=== PATIENT | female | born 1985 | race Caucasian/White ===

== ENCOUNTER 2016-09-03 14:48 | Inpatient (IN) | payer BC ==
[~2016-09-03] VITALS: Ht 177.8 cm; Wt 64.2 kg
[2016-09-03] MEDS ORDERED: ONDANSETRON INJ 2 MG/ML 2 ML VIAL IV STA (15:41)
[2016-09-03] MEDS ORDERED: HYDROmorphone INJ 1 MG/ML SYR IV STA ×2 (15:41→17:39)
[2016-09-03] MEDS ORDERED: SODIUM CHLORIDE 0.9% 1000ML 1,000 ML IV STA (15:41)
--- NOTE | 2016-09-03 15:46 | EMERGENCY ROOM VISIT NOTE ---
History Report prepared by Galo: Dina Crawley Under the Supervision of: Dr. Keith Mcallister M.D. First contact with patient: 15:35 Chief Complaint: PAIN (GENERALIZED) Stated Complaint: SHARP STABBING PAIN FROM RUPTION OF CYST History of Present Illness The patient is a 30 year old female who presents to the Emergency Room with complaints of worsening lower abdominal pain since yesterday. The patient notes that she was diagnosed with a ruptured ovarian cyst at [facility] yesterday. She was given pain medications and discharged home. She was scheduled for surgery in several weeks. She called Dr. Cote - Gynecology today due to her worsened pain who referred her to the ED. Her current discomfort is a 7/10 in severity. Source of History: patient Onset: yesterday Position: abdomen (lower) Symptom Intensity: 710 Timing: worsening Review of Systems See HPI for pertinent positives & negatives. A total of 10 systems reviewed and were otherwise negative. Past Medical & Surgical Medical Problems: (1) Endometriosis (2) Ovarian cyst Family History No pertinent family history stated. Social History Smoking Status: Never Smoker Current/Historical Medications Scheduled Control Pills ( Control Pills), 1 TAB PO DAILY Metaxalone (Skelaxin), 800 MG PO QID Ondasetron Odt (Zofran Odt), 4 MG PO Q6H Scheduled PRN Gabapentin (Neurontin), 300 MG PO HS PRN for Pain Naproxen (Aleve), 220 MG PO UD PRN for Pain Oxycodone/Acetaminophen 10MG/325MG (Oxycodone/Acetaminophen 10MG/325MG), 1 TAB PO Q6H PRN for Pain Oxycodone/Acetaminophen 5MG/325MG (Percocet 5MG/325MG), 1 TABLET PO Q6H PRN for Pain Allergies Coded Allergies: No Known Allergies (Unverified , 09/03/16) Physical Exam Vital Signs Date Time Temp Pulse Resp B/P Pulse Ox O2 Delivery O2 Flow Rate FiO2 09/03/16 21:30 84 16 122/55 99 Mask 10 09/03/16 21:20 87 16 118/53 99 Mask 10 09/03/16 21:14 36.6 82 16 123/65 99 Mask 10 09/03/16 18:38 106 21 116/61 95 09/03/16 18:32 106 21 116/61 95 Room Air 09/03/16 17:58 38.1 103 20 122/59 97 Room Air 09/03/16 16:30 105 09/03/16 15:18 37.0 114 20 106/55 98 Room Air Physical Exam GENERAL: Patient is a healthy-appearing well-nourished 30 year old female HEAD: Normocephalic atraumatic EYES: Ocular movements intact pupils equal and react to light OROPHARYNX mucous membranes are moist no exudates present no erythema or edema present NECK: Supple no nuchal rigidity CHEST: Good equal expansion LUNGS: Clear and equal to auscultation CARDIAC: Normal S1 and S2 ABDOMEN: Soft, no guarding. Distended. BACK: No CVA tenderness EXTREMITIES: No pain upon palpation normal muscle strength in all groups no clubbing cyanosis or edema NEURO: Patient is following commands is answering questions appropriately. Alert and oriented x3 Cranial Nerves 2-12 grossly intact Medical Decision & Procedures Laboratory Results Test 09/03/16 16:00 09/03/16 17:05 Total Bilirubin 0.8 mg/dl (0.2-1) Direct Bilirubin 0.2 mg/dl (0-0.2) Aspartate Amino Transf (AST/SGOT) 18 U/L (15-37) Alanine Aminotransferase (ALT/SGPT) 17 U/L (12-78) Alkaline Phosphatase 41 U/L (45-117) Total Protein 7.4 gm/dl (6.4-8.2) Albumin 3.9 gm/dl (3.4-5.0) Lipase 121 U/L (73-393) Human Chorionic Gonadotropin, Qual NEG (NEG) Human Chorionic Gonadotropin, Quant < 1 mIU/mL Medications Administered Medications (Trade) Dose Ordered Sig/Paul Route Start Time Stop Time Status Last Admin Dose Admin Sodium Chloride (Nss 1000ml) 1,000 ml @ 999 mls/hr Q1H1M STAT IV 09/03/16 15:41 09/03/16 16:41 DC 09/03/16 16:15 999 MLS/HR Hydromorphone HCl (Dilaudid Inj) 1 mg NOW STAT IV 09/03/16 15:41 09/03/16 15:44 DC 09/03/16 16:15 1 MG Ondansetron HCl 4 mg 4 mg NOW STAT IV 09/03/16 15:41 09/03/16 15:44 DC 09/03/16 16:15 4 MG Cefazolin Sodium (Ancef 2000mg/60 ml D5W) 60 ml @ 100 mls/hr PREOP@1800 IV 09/03/16 18:00 09/03/16 23:59 DC 09/03/16 18:00 100 MLS/HR Hydromorphone HCl (Dilaudid Inj) 1 mg NOW STAT IV 09/03/16 17:39 09/03/16 17:41 DC 09/03/16 17:59 1 MG Metoclopramide HCl (Reglan Inj) 10 mg NOW STAT IV 09/03/16 17:39 09/03/16 17:41 DC 09/03/16 17:59 10 MG Hydromorphone HCl (Dilaudid Inj) 0.5 mg Q5M PRN IV 09/03/16 19:00 09/04/16 00:00 DC 09/03/16 21:40 0.5 MG Ondansetron HCl (Zofran Inj) 4 mg ONE PRN IV 09/03/16 19:00 09/03/16 21:53 DC 09/03/16 21:45 4 MG Ondansetron HCl (Zofran Inj) 4 mg Q4H PRN IV 09/03/16 21:30 10/03/16 21:29 09/04/16 17:29 4 MG Hydromorphone HCl (Dilaudid [employer]ver [employer]) 25 mg PRN PRN IV 09/03/16 21:30 09/04/16 10:03 DC 09/04/16 05:38 25 MG ED Course 1539: The patient was evaluated in room C9. A complete history and physical examination was performed. 1541: Ordered Zofran Inj 4 mg IV, Dilaudid Inj 1 mg IV, NSS 1000 ml @ 999 mls/ hr IV. 1605: I spoke with Dr. Cote - doll wig maker. She is taking the patient to the OR. Medical Decision Differential diagnosis: Etiologies such as appendicitis, diverticulitis, PUD, biliary pathology, UTI, pancreatitis, obstruction, mesenteric ischemia, aortic pathology, infections, inflammatory bowel disease, renal colic, as well as others were entertained. This is a 30-year-old female who presents emergency department with possibly free fluid in the abdomen. The patient was seen and [facility] yesterday and had an ultrasound performed then. She is to see Dr. Cote in the emergency department today. The patient is refusing to see this emergency department Dr. she is complaining of severe pain therefore she was given an IV dose of Dilaudid 2. The patient refused a fast examination in the emergency department. The case was discussed with Dr. Cote who came and saw the patient and took her to the operating room.- Consults Time Called: 1600 Consulting Physician: Dr. Cote - doll wig maker Returned Call: 1605 I spoke with her. She is taking the patient to the OR. Impression Primary Impression: Lower abdominal pain Critical Care I have personally spent greater than 30 minutes of critical care time in the direct management of this patient. This includes bedside care, interpretation of diagnostic studies, and testing, discussion with consultants, patient, and family members, and other required patient management activities. This 30 minutes is in excess of all separately billable procedures. Scribe Attestation The scribe's documentation has been prepared under my direction and personally reviewed by me in its entirety. I confirm that the note above accurately reflects all work, treatment, procedures, and medical decision making performed by me. Departure Information Dispostion Being Evaluated By Surgeon Prescriptions Oxycodone/Acetaminophen 10MG/325MG (OXYCODONE/ACETAMINOPHEN 10MG/325MG) 1 Tab Tab 1 TAB PO Q6H Y for Pain, #30 TAB Prov: Ion Chávez M.D. 09/05/16 Ondasetron Odt (ZOFRAN ODT) 4 Mg Tab 4 MG PO Q6H for Nausea, #30 TAB Prov: Ion Chávez M.D. 09/05/16 Oxycodone/Acetaminophen 5MG/325MG (PERCOCET 5MG/325MG) Tab 1 TABLET PO Q6H Y for Pain, #30 TAB Prov: Olesya Cote MD 09/04/16 Referrals Red Byers M.D.([facility]) (PCP) Patient Instructions My [facility]
[2016-09-03] MEDS ORDERED: NAPR1TAB9 PO ×2 (16:09→16:12)
[2016-09-03] MEDS ORDERED: GABA-113 PO ×2 (16:09→16:12)
[2016-09-03] MEDS ORDERED: BCPILLS PO ×2 (16:09→16:12)
[2016-09-03] MEDS ORDERED: OXYC-57 PO ×2 (16:09→16:12)
[2016-09-03] MEDS ORDERED: META1TAB22 PO ×2 (16:09→16:12)
[2016-09-03 16:22] LABS: BASO % 0.1 %; BASO ABS # 0.02 K/uL (0-0.2); COMPLETE YES; HEMATOCRIT 43.8 % (37-47); IG% 0.3 %; LYMPH % 10.3 %; LYMPH ABS # 1.62 K/uL (1.2-3.4); MEAN CELL VOLUME 95.2 fL (80-100); MEAN CORPUSCULAR HEMOGLOBIN 32.4 pg (25-34); MEAN PLATELET VOLUME 8.7 fL (7.4-10.4); MONO % 3.3 %; PLATELET COUNT 317 K/uL (130-400)
[2016-09-03 16:32] LABS: PREG INTERNAL NEGATIVE QC NEG CLEAR BACKGROUND; PREG INTERNAL POSITIVE QC POS CONTROL LINE
[2016-09-03 16:40] LABS: BUN/CREATININE RATIO 18.4 (10-20); CALCIUM 8.8 mg/dl (8.5-10.1); CREATININE 0.78 mg/dl (0.60-1.20); POTASSIUM 3.7 mmol/L (3.5-5.1)
--- NOTE | 2016-09-03 16:47 | Medical Consult ---
Consultation Date of Consultation: Sep 03, 2016. Attending Physician: Kera Reason for Consultation: Acute abdominal pain with bilateral ovarian masses, free abdominal fluid, and leukocytosis History of Present Illness 30yo G0 first seen by me in office setting Aug 07 2016 as a new patient for infertility, bilateral pelvic pain and worsening dysmenorrhea. She had recently been found to have bilateral cystic masses of the ovaries, up to 12.8cm, incidentally noted during MRI done for lower back pain which is secondary to work-related injury per the patient. We performed pelvic US in office to confirm that the masses persisted, which they did, and they have the appearance on ultrasound of endometriomas. She was then scheduled for robotic laparoscopic ovarian cystectomies and resection of likely endometriosis. The date of surgery is in September. However, last night she experienced acute worsening of pain and called the on-call physician, Dr. Jaquez, who recommended ER. The patient elected to present to [facility] where she was evaluated and then discharged. She then contacted our office today, tearful and reporting pain was once again worsening, and asked to be seen. I was able to obtain records from [facility] and review them. Upon finding that she had a WBC of 20 when seen last night, as well as persistent ovarian masses and significant free fluid which was found in the pelvis, RUQ and LUQ, I became very concerned and asked her to present to [facility] ER for further evaluation. My concern was primarily for active bleeding or leakage from a rupture in one of her ovarian masses. Torsion is also a significant concern, although their ultrasound does report flow to both ovaries; this does not R/O intermittent torsion. Past Medical/Surgical History Medical Problems: (1) Lower abdominal pain Status: Acute Social History Smoking Status: Never Smoker Smokeless Tobacco Use: No Alcohol Use: socially Drug Use: none Marital Status: Occupation Status: employed Allergies Coded Allergies: No Known Allergies (Unverified , 09/03/16) Home Medications Patient reports use of 1-2 percocet per day, typically after work, for her chronic back pain. She last took one percocet at 4am upon leaving [facility] and did not take any today. She uses LoEstrin as prescribed at our recent visit , though notes she did not take an active pill yesterday as she reached the end of the pack and did not start the next pack yet. Current Inpatient Medications Current Inpatient Medications Medications (Trade) Dose Ordered Sig/Paul Route Start Time Stop Time Status Last Admin Dose Admin Sodium Chloride (Nss 1000ml) 1,000 ml @ 999 mls/hr Q1H1M STAT IV 09/03/16 15:41 09/03/16 16:41 09/03/16 16:15 999 MLS/HR Review of Systems Neg except as above. Constitutional: No fever Cardiovascular: No chest pain Abdomen: No nausea, No vomiting Genitourinary - Female: + vaginal bleeding (started menses yesterday) Physical Exam Date Time Temp Pulse Resp B/P Pulse Ox O2 Delivery O2 Flow Rate FiO2 09/03/16 16:30 105 09/03/16 15:18 37.0 114 20 106/55 98 Room Air General Appearance: + severe distress Head: normocephalic, atraumatic Eyes: EOMI ENT: hearing grossly normal Neck: supple Respiratory/Chest: no respiratory distress, no accessory muscle use Cardiovascular: no edema Abdomen/GI: + tenderness, + guarding, + rebound Genitourinary - Female: + pertinent finding (no pelvic exam as patient barely able to tolerate abdominal exam - tearful with movement or touching.) Extremities/Musculoskelatal: normal inspection Neurologic/Psych: oriented x 3 Laboratory Results Last 24 Hours Test 09/03/16 16:00 White Blood Count 15.80 K/uL Red Blood Count 4.60 M/uL Hemoglobin 14.9 g/dL Hematocrit 43.8 % Mean Corpuscular Volume 95.2 fL Mean Corpuscular Hemoglobin 32.4 pg Mean Corpuscular Hemoglobin Concent 34.0 g/dl Platelet Count 317 K/uL Mean Platelet Volume 8.7 fL Neutrophils (%) (Auto) 86.0 % Lymphocytes (%) (Auto) 10.3 % Monocytes (%) (Auto) 3.3 % Eosinophils (%) (Auto) 0.0 % Basophils (%) (Auto) 0.1 % Neutrophils # (Auto) 13.60 K/uL Lymphocytes # (Auto) 1.62 K/uL Monocytes # (Auto) 0.52 K/uL Eosinophils # (Auto) 0.00 K/uL Basophils # (Auto) 0.02 K/uL RDW Standard Deviation 48.5 fL RDW Coefficient of Variation 13.8 % Immature Granulocyte % (Auto) 0.3 % Immature Granulocyte # (Auto) 0.04 K/uL Assessment & Plan 30yo with large bilateral ovarian cystic masses, likely c/w endometriomas, and acute presentation in past 24 hours with abdominal pain, rebound, guarding, leukocytosis to 20 at hospital yesterday night, and ultrasound of abdomen with significant free fluid seen yesterday. Pending repeat labs here in our ER. Her exam is concerning for peritonitis / cyst rupture / torsion, and I have recommended to the patient that we proceed with an exploratory laparotomy, bilateral ovarian cystectomy, and washout of the abdominal fluid. She is aware that we may choose either a pfannensteil or a midline vertical laparotomy and although she is very concerned about the cosmetic implications of a vertical she stated "I want you to do what you need to do to make this better." We discussed that although there may be risks to her fertility if one or both ovaries or tubes must be removed, but she is also aware that she had infertility for many years before her passed, and in fact there may already have been significant damage to her fallopian tubes from ongoing endometriosis. The patient and family members have asked appropriate questions , risks/benefits/alternatives were discussed at length, and they are in agreement with proceeding.
[2016-09-03] MEDS ORDERED: METOCLOPRAMIDE HCL INJ 5 MG/ML 2 ML VIAL IV STA (17:39)
[2016-09-03] MEDS ORDERED: CEFAZOLIN 2000 MG/60 ML D5W IV SCH (18:00)
[2016-09-03] MEDS ORDERED: FENTANYL CITRATE INJ 50 MCG/1 ML 2 ML VIAL ONE (18:34)
[2016-09-03] MEDS ORDERED: MIDAZOLAM HCL 1 MG/ML 2ML VIAL ONE (18:34)
[2016-09-03] MEDS ORDERED: ROCURONIUM BROMIDE 10 MG/ML 5 ML VIAL ONE (18:36)
[2016-09-03] MEDS ORDERED: PROPOFOL IV EMULSION 10 MG/ML 20 ML VIAL IV ONE (18:36)
[2016-09-03] MEDS ORDERED: LIDOCAINE HCL 2% 2 ML VIAL (20MG/ML) ONE (18:36)
[2016-09-03] MEDS ORDERED: SUCCINYLCHOLINE CHLORIDE 20 MG/ML 10 ML VIAL IV ONE (18:36)
[2016-09-03] MEDS ORDERED: NALOXONE HCL 0.4 MG/1 ML VIAL/CARP IV PRN ×2 (19:00→21:30)
[2016-09-03] MEDS ORDERED: MoRPHine SULFATE 10 MG/ML CARP/VIAL IV PRN (19:00)
[2016-09-03] MEDS ORDERED: ATROPINE SULFATE 0.1 MG/ML 5ML SYR IV PRN (19:00)
[2016-09-03] MEDS ORDERED: EpHEDrine SULFATE INJ 50 MG/ML AMP IV PRN (19:00)
[2016-09-03] MEDS ORDERED: ONDANSETRON INJ 2 MG/ML 2 ML VIAL IV PRN ×2 (19:00→21:30)
[2016-09-03] MEDS ORDERED: LABETALOL HCL IV 5 MG/ML 20ML IV PRN (19:00)
[2016-09-03] MEDS ORDERED: MEPERIDINE HCL 25 MG/ML CARP IV PRN (19:00)
[2016-09-03] MEDS ORDERED: FLUMAZENIL 0.1 MG/1 ML 10 ML VIAL IV PRN (19:00)
[2016-09-03] MEDS ORDERED: PHENYLEPHRINE 100MCG/ML 5ML SYR IV PRN (19:00)
[2016-09-03] MEDS ORDERED: ONDANSETRON INJ 2 MG/ML 2 ML VIAL ONE (19:18)
[2016-09-03] MEDS ORDERED: DEXAMETHASONE SOD INJ 4 MG/ML VIAL ONE (19:18)
[2016-09-03] MEDS ORDERED: GLYCOPYRROLATE INJ 0.2 MG/ML VIAL ONE ×2 (19:19→19:32)
[2016-09-03] MEDS ORDERED: DROPERIDOL 2.5 MG/ML 2**ORM CHARTING ONLY ONE (20:22)
[2016-09-03] MEDS ORDERED: SODIUM CHLORIDE 0.9% 10ML **ORM CHARTING ONLY ONE (20:22)
[2016-09-03] MEDS ORDERED: LABETALOL HCL IV **ORM CHARTING ONLY IV ONE (20:22)
[2016-09-03] MEDS ORDERED: HYDROmorphone HCL 2 MG/ML **ORM CHARTING ONLY ONE (20:22)
[2016-09-03] MEDS ORDERED: METOCLOPRAMIDE HCL INJ **ORM CHARTING ONLY ONE (20:22)
[2016-09-03] MEDS ORDERED: FENTANYL CITRATE INJ 50 MCG**ORM CHARTING ONLY ONE (20:22)
[2016-09-03] MEDS ORDERED: NALOXONE HCL 0.4 MG/1 ML **ORM CHARTING ONLY ONE (20:22)
[2016-09-03] MEDS ORDERED: HydrALAZINE HCL **ORM CHARTING ONLY ONE (20:22)
[2016-09-03] MEDS ORDERED: EpHEDrine SULFATE INJ 50 MG/ML **ORM CHARTING ONLY ONE (20:22)
[2016-09-03] MEDS ORDERED: ATROPINE SULFATE 0.1 MG/ML 5ML SYR IV ONE (20:22)
[2016-09-03] MEDS ORDERED: LIDOCAINE 2% 20 MG/ML SYRINGE***ORM CHARTING ONLY IV ONE (20:22)
[2016-09-03] MEDS ORDERED: MoRPHine SULFATE 10 MG/ML **ORM CHARTING ONLY ONE (20:22)
[2016-09-03] MEDS ORDERED: MIDAZOLAM HCL 1 MG/ML 2ML**ORM CHARTING ONLY ONE (20:22)
[2016-09-03] MEDS ORDERED: MEPERIDINE HCL 50 MG/ML CARP**ORM CHARTING ONLY ONE (20:22)
[2016-09-03] MEDS ORDERED: KETOROLAC 30 MG/ML **ORM CHARTING ONLY ONE (20:22)
[2016-09-03] MEDS ORDERED: ONDANSETRON INJ 2 MG/ML **ORM CHARTING ONLY ONE (20:22)
[2016-09-03] MEDS ORDERED: HYDROmorphone INJ 2 MG/ML SYR/VIAL ONE (20:30)
[2016-09-03] MEDS ORDERED: NEOSTIGMINE METHYLSULFATE 5 MG/5 ML SYR ONE (20:41)
[2016-09-03] MEDS ORDERED: SODIUM CHLORIDE 0.9% 1000ML 1,000 ML IV SCH (21:24)
[2016-09-03] MEDS ORDERED: PROMETHAZINE HCL INJ 25 MG in SODIUM CHLORIDE 0.9% 50ML 50 ML IV PRN (21:30)
[2016-09-03] MEDS: HYDROmorphone INJ 1 MG/ML SYR IV PRN ×2 (21:35→21:40)
--- NOTE | 2016-09-03 21:38 | [facility] Post Operative Brief Note ---
Immediate Operative Summary Operative Date Sep 03, 2016. Pre-Operative Diagnosis Bilateral Ovarian Cystic Masses, acute abdominal pain, free abdominal fluid, leukocytosis Post-Operative Diagnosis Severe Endometrosis with bilateral actively-leaking endometriomas (12cm and 7cm), bilateral hydrosalpinges, Intra-abdominal adhesive disease, uterine fibroid. Procedure(s) Performed Exploratory Laparotomy, Bilateral Salpingectomy, Drainage of Endometriomas, Lysis of Adhesions, Evacuation of Peritoneal Fluid. Surgeon Junior Data Analyst Surgeon(s) Dr. Sandra Trent Estimated Blood Loss 100ml Findings Abdominal cavity distended by 1.5 liters of chocolate-type free fluid. Ovaries 12cm on R and 7cm on L, adhered densely to large and small bowel, rectum, each other in the midline, pelvic sidewalls, and uterus, which was actually encased in / obscured by ovaries. Necrotic endometriosis-type tissue adherent to pelvic and abdominal organs in pieces up to 2" in size. Bilateral distended and distorted fallopian tubes. Uterus with 1" fibroid on anterior surface. Appendix nonvisualized. Specimens A. Right Fallopian Tube B. Left Fallopian Tube C. Probable Endometrial Tissue Complication(s) None Disposition Surgical ICU
[2016-09-03] MEDS ORDERED: HYDROmorphone HCL 0.5MG/ML 50 ML CASSETTE ONE (21:41)
[2016-09-03] MEDS ORDERED: PROMETHAZINE HCL INJ 12.5 MG in SODIUM CHLORIDE 0.9% 50ML 50 ML IV STA (21:50)
--- NOTE | 2016-09-03 21:50 | Anesthesiology Progress Note ---
Anesthesia Post Op Note Date & Time Sep 03, 2016 at 21:51 Vital Signs Pain Intensity: 3.0 Vital Signs Past 12 Hours Date Time Temp Pulse Resp B/P Pulse Ox O2 Delivery O2 Flow Rate FiO2 09/03/16 21:30 84 16 122/55 99 Mask 10 09/03/16 21:20 87 16 118/53 99 Mask 10 09/03/16 21:14 36.6 82 16 123/65 99 Mask 10 09/03/16 18:38 106 21 116/61 95 09/03/16 18:32 106 21 116/61 95 Room Air 09/03/16 17:58 38.1 103 20 122/59 97 Room Air 09/03/16 16:30 105 09/03/16 15:18 37.0 114 20 106/55 98 Room Air Notes Mental Status: alert / awake / arousable, participated in evaluation Pt Amnestic to Procedure: Yes Nausea / Vomiting: adequately controlled, improving with treatment Pain: adequately controlled Airway Patency, RR, SpO2: stable & adequate BP & HR: stable & adequate Hydration State: stable & adequate Anesthetic Complications: no major complications apparent
[2016-09-03 22:35] VITALS: BP 100/64; PULSE 84; TEMP 37.3; O2SAT 97; Ht 177.8 cm; Wt 64.2 kg
[2016-09-03 23:05] VITALS: BP 110/61; PULSE 72; TEMP 37; O2SAT 98
[2016-09-03 23:35] VITALS: BP 101/68; PULSE 79; TEMP 37.2; O2SAT 99
[2016-09-04] VITALS (7 sets, daily range): BP systolic 98–111; BP diastolic 53–68; PULSE 78–98; TEMP 36.8–37.3; O2SAT 95–100
[2016-09-04] MEDS: HYDROmorphone HCL 0.5MG/ML 50 ML CASSETTE IV PRN ×2 (00:25→05:38)
--- NOTE | 2016-09-04 03:20 | OPERATIVE REPORT ---
DATE OF OPERATION: 09/03/2016 PREOPERATIVE DIAGNOSES: Bilateral ovarian cystic masses, acute abdominal pain, free abdominal fluid and leukocytosis. POSTOPERATIVE DIAGNOSES: Severe endometriosis with bilateral actively leaking endometriomas, bilateral hydrosalpinges, intra-abdominal adhesive disease and an uterine fibroid. PROCEDURES: Exploratory laparotomy, bilateral salpingectomy, drainage of endometriomas, lysis of adhesions and evacuation of peritoneal fluid. SURGEON: Dr. Cote. INDUSTRIAL ENGINEERING ANALYST: Miley. ESTIMATED BLOOD LOSS: 100 mL. FINDINGS: Abdominal cavity distended by 1.5 liters of chocolate-type free fluid, ovaries dilated to 12 cm on the right and 7 cm on the left, filled with chocolate type fluid. Each ovary was adhered densely to the large and small bowel, the rectum to each other in the midline, to the pelvic sidewalls and to the uterus, which was actually encased in and obscured by the ovaries. Necrotic endometriosis-type tissue was adherent to the pelvic and abdominal organs in chunks up to 2 inches in size. There were bilateral distended and distorted fallopian tubes, uterus with 1-inch exophytic fibroid on its anterior surface, the appendix was non-visualized. SPECIMENS: Right fallopian tube, left fallopian tube and probable endometrial tissue. COMPLICATIONS: None. DISPOSITION: Stable to the surgical ICU because of the late hour of the completion of her surgery. DESCRIPTION: Treva Dinh is a 30-year-old, with bilateral pelvic cystic masses, who presented to the Emergency Department with acute abdominal pain. She was known to have free fluid in the abdomen and a significant leukocytosis, per the records from her visit to an outside ER the prior evening. She was also known to my care for these ovarian cystic masses, for which surgery was planned in the near future. Given the patient's acute presentation, her leukocytosis, the free fluid and her excruciating pain, the decision was made to bring the patient to the operating room without delay for an exploratory laparotomy. She was brought to the operating room, placed on the table in the supine position. General anesthesia was established. A Toro catheter was placed and she was prepped and draped in standard sterile fashion, after which a hard time-out was taken. A Pfannenstiel incision was created. This was carried down sharply through the subcutaneous tissue to the fascia, which was incised. This was extended laterally, using a Ruby clamp to elevate and Bovie electrocautery to dissect. The edges of the fascia were grasped with Kavitha clamps, elevated and the fascia was sharply and bluntly dissected off the underlying rectus muscles. Midline of the rectus was identified and this was bluntly . As soon as the peritoneum was visualized, it was evident that a significant amount of a grayish brown fluid was lying directly beneath the peritoneum. The peritoneum was then grasped, using 2 hemostats, and elevated and it was opened sharply, using Metzenbaum scissors between hemostats. Immediately, a cola-like fluid was seen to spill from the abdomen. A pool sucker was used in the peritoneal opening to evacuate some of this fluid. Please note that a sliceX suction machine was used to measure the volume of fluid that was retrieved from the abdomen. Once the initial spillage of fluid had been stemmed, the peritoneal opening was extended sharply, using careful dissection with the Metzenbaum scissors until it was clear that this was in fact the peritoneum and that we were entering the peritoneal cavity and not going directly into a cyst or other location. Again, a pool sucker was used to allow visualization of the organs, which were essentially covered in chocolate type fluid. As the fluid was evacuated, we were able to visualize small bowel, which was coated in a densely adherent film of a mcdonough-black substance, which appeared to be necrotic endometriotic implants. Gently using the pool sucker to sweep and the surgeon's hands to palpate the organs, we were able to identify, what appeared to be, a grossly distended right ovary. After sweeping away some small bowel, an area of the ovary was able to be exposed. This was able to be isolated by packing away the surrounding tissues with a damp lap sponges. The ovary was incised, using an 11 blade to make a punctate opening in the ovary through which dark chocolate fluid was expressed and this was suctioned directly from the ovary. As the ovary was decompressed, we were able to begin to gently sweep and dissect around the ovary. We were then gradually able to identify the right fallopian tube, which was immediately noted to be grossly dilated, edematous and consistent with a hydrosalpinx and also encased in a gelatinous dark mcdonough-black material, which again was felt to be consistent with necrotic endometriosis. Continued dissection throughout the pelvis, which was carried out gently, using a combination of sharp and blunt dissection as well as suction, we then eventually identified the left ovary, which was also grossly dilated to approximately 7 cm and the left fallopian tube, which was again completely encased in gelatinous endometriosis. The left ovary was incised in a punctate manner with an 11 blade and again suctioned to directly remove a significant amount of chocolate cyst-type fluid and as this ovary decompressed, we were able to begin dissection of the left ovary. It became apparent that both ovaries were adherent to each other in the midline. Please note that as yet, we had been unable to identify the patient's uterus due to it being completely encased in the ovaries and the overlying bowel. We were then able to recognize that both ovaries were densely adherent to the posterior pelvis and to the rectum as well as to the pelvic sidewalls bilaterally. A portion of the sigmoid colon was adherent across the midline of the pelvic organs over both ovaries and this was gently able to be teased free and moved out of the way. Once this degree of mobilization of the pelvic organs had been undertaken, we were able to gently remove all instruments, complete some additional suction of endometriotic-type free fluid and gently place an O'Adriel-O'Casanova retractor with the patient in moderate Trendelenburg positioning and pack away the bowel that had been successfully freed from the pelvic organs. This significantly aided in our ability to identify the pelvic organs and we were able to more clearly identify both ovaries, both fallopian tubes and eventually, the uterine fundus. Once the fundus was able to be visualized, the cornua of the uterus were gently grasped with Ruby clamps to allow elevation. At this time, we were able to dissect a significant pocket of endometriosis occurring on the anterior surface of the uterus between the uterus and the bladder. Once this was drained and swept away and some additional gelatinous pieces of endometriosis were removed in a blunt manner, we were able to identify a fibroid, which was protuberant from the anterior surface of the uterus, roughly 1 inch in length and rather tai-like in shape. Below this fibroid, the bladder flap was able to be seen and appeared to be relatively anatomically normal. Attention was then turned to restoring normal anatomy near the ovaries by sweeping, again, endometriotic adhesions between the ovaries and the posterior surface of the uterus. At this time, we were able to evacuate additional pelvic free fluid and see that the ovaries were so densely adherent to the rectum that it would be nearly impossible to fully dissect them to allow for oophorectomy without dissecting these carefully off of the rectum. At this time, I asked Dr. Espino, a general surgeon, to come and consult for us. He did promptly arrive in the operating room, scrubbed in; after exploring the pelvis, rendered the opinion that removal of the ovaries was, at this time, surgically inadvisable, as it would almost certainly lead to a rather large rectal injury or even if we were able to remove the ovaries without injuring the rectum, would require leaving a significant portion of ovarian tissue behind, which was less than ideal. Therefore, although the ovaries were grossly distorted, they did look viable and at this time, it was felt that the best course of care for the patient would be to leave the ovaries in situ. We did elect to remove both fallopian tubes, as these were grossly damaged, had demonstrated themselves to be infertile through several years of attempts to conceive and additionally, the patient would likely need IVF in order to conceive in the future, at which time removal of the fallopian tubes would significantly improved her chances for a good outcome. A Ruby clamp was placed across the entire fallopian tube from the fimbriated end to the proximal portion. The tube was excised, using Bovie electrocautery and a pop off 0 Vicryl suture was used in a Bhupendra stitch manner to ligate the mesosalpinx and stump. This was performed on the right fallopian tube and then again on the left fallopian tube. Each fallopian tube was sent for pathology. A further copious irrigation of the abdomen was carried out with warm saline. The patient was placed in a flat position and a pool sucker was again used to retrieve the remainder of the endometriotic-type free fluid from the abdomen. At this time, although a significant amount of endometriosis remained in the abdomen, implanted upon the bowels, the pelvic side bhatt, etc., it was felt that the safest course of action for the patient and the most likely to provide her the greatest amount of relief and positive outcomes would be to consider her surgery complete at this point. A reasoning at this time was that although significant endometriotic disease remained, removal of the ovaries in order to allow permanent shutdown of endometriosis was not surgically feasible at this time and additionally, the ovaries did appear surprisingly viable even after drainage of the cyst and may yet to be able to function normally for this young female patient. Our plan at the present time, as discussed in the operating room, would be to recommend Lupron for 6 months immediately following the surgery in order to assist the remaining endometriotic implants in fading away. Further surgery, if required at that time, may be more likely to be safely performed. This decision thus made, the lap sponges were removed and a lap count was implemented, which revealed that all sponges had been accounted for. The rectus muscles were reapproximated in the midline using 0 chromic. The fascia was then closed using #1 Vicryl suture in a running nonlocked manner. At the completion of fascial repair, the fascia was examined and found to be free of any defect. The subcutaneous tissue was copiously irrigated and closed with a 3-0 chromic suture and the skin was then closed with 4-0 Monocryl in a running subcuticular manner after which a Dermabond dressing was applied. The Toro was noted to be draining clear yellow urine at the time the patient was awakened and transferred to her recovery suite in the ICU, which was being used as A PACU, given the late hour of the completion of her surgery. I attest to the content of the Intraoperative Record and any orders documented therein. Any exceptions are noted below. MATTHIAS
[2016-09-04] MEDS: LACTATED RINGER'S 1000ML 1,000 ML IV SCH ×2 (04:58→15:34)
[2016-09-04] MEDS ORDERED: CEFAZOLIN IV 2,000 MG in DEXTROSE 5% 50ML 50 ML IV SCH (06:00)
[2016-09-04] MEDS: LOCK-OUT PCA TITRATION SCH ×2 (08:00)
[2016-09-04 08:24] LABS: BASO % 0.1 %; BASO ABS # 0.01 K/uL (0-0.2); COMPLETE YES; IG% 0.3 %; LYMPH % 4.4 %; LYMPH ABS # 0.68 K/uL (1.2-3.4); MEAN CELL VOLUME 96.5 fL (80-100); MEAN CORPUSCULAR HEMOGLOBIN 32.4 pg (25-34); MEAN CORPUSCULAR HGB CONC 33.6 g/dl (32-36); MEAN PLATELET VOLUME 8.7 fL (7.4-10.4); MONO % 3.5 %; NEUT % 91.7 %; PLATELET COUNT 250 K/uL (130-400); RED BLOOD COUNT 3.73 M/uL (4.2-5.4); WHITE BLOOD COUNT 15.31 K/uL (4.8-10.8)
[2016-09-04 08:49] LABS: BUN/CREATININE RATIO 12.8 (10-20); CREATININE 0.67 mg/dl (0.60-1.20); POTASSIUM 4.1 mmol/L (3.5-5.1)
[2016-09-04] MEDS ORDERED: DOCUSATE SODIUM 100 MG CAP PO SCH (09:00)
[2016-09-04] MEDS ORDERED: KETOROLAC TROMETHAMINE 30 MG/ML VIAL ONE (09:50)
[2016-09-04] MEDS ORDERED: NURSING VERBAL MED ORDER ONE (10:00)
[2016-09-04] MEDS ORDERED: KETOROLAC TROMETHAMINE 30 MG/ML VIAL IV. PRN (10:15)
[2016-09-04] MEDS ORDERED: HYDROmorphone INJ 2 MG/ML SYR/VIAL IV PRN (10:15)
[2016-09-04] MEDS ORDERED: HYDROmorphone INJ 1 MG/ML SYR IV PRN (10:15)
--- NOTE | 2016-09-04 10:35 | Progress Note ---
Subjective Date of Service: Sep 04, 2016. Subjective Pt evaluation today including: conversation w/ patient, conversation w/ family , physical exam, chart review Pain: remains moderate despite BRIDGE IRONWORKER. PO Intake: Clears well tolerated Voiding: no voiding problems (moreland out a 6am, pt reports successful void.) Please note patient was seen earlier this morning, but notes are delayed due to my performance of a in the interim. Problem List Medical Problems: (1) Lower abdominal pain Status: Acute Review of Systems Constitutional: No chills, No fever Respiratory: No cough Cardiac: No chest pain Abdomen: No nausea, No vomiting Female : No dysuria All Other Systems: Reviewed and Negative Objective Vital Signs Date Time Temp Pulse Resp B/P Pulse Ox O2 Delivery O2 Flow Rate FiO2 09/04/16 07:40 37.3 85 16 102/65 98 Room Air 09/04/16 07:40 Room Air 09/04/16 04:10 36.8 85 16 102/62 97 Room Air 09/04/16 01:35 37.2 83 16 98/60 95 Room Air 09/04/16 00:35 37.2 78 16 108/68 98 Room Air 09/04/16 00:35 98 Nasal Cannula 2.0 09/03/16 23:35 37.2 79 12 101/68 99 Nasal Cannula 2.0 09/03/16 23:05 37.0 72 12 110/61 98 Nasal Cannula 2.0 09/03/16 22:35 37.3 84 14 100/64 97 Nasal Cannula 2.0 09/03/16 22:35 37.3 84 14 100/64 97 Nasal Cannula 2.0 09/03/16 22:35 97 Nasal Cannula 2.0 09/03/16 22:00 36.4 77 18 122/63 99 Nasal Cannula 2 09/03/16 21:50 79 16 122/63 99 Room Air 09/03/16 21:40 79 16 116/54 99 Room Air 09/03/16 21:30 84 16 122/55 99 Mask 10 09/03/16 21:20 87 16 118/53 99 Mask 10 09/03/16 21:14 36.6 82 16 123/65 99 Mask 10 09/03/16 18:38 106 21 116/61 95 09/03/16 18:32 106 21 116/61 95 Room Air 09/03/16 17:58 38.1 103 20 122/59 97 Room Air 09/03/16 16:30 105 09/03/16 15:18 37.0 114 20 106/55 98 Room Air Physical Exam General Appearance: + mild distress (At times comfortable, other times winces with movement.) ENT: hearing grossly normal Respiratory/Chest: no respiratory distress, no accessory muscle use Cardiovascular: no edema (SCDs in use) Abdomen: non tender, soft, + pertinent finding (incision c/d/i) Extremities: normal inspection Neurologic/Psychiatric: normal mood/affect, oriented x 3 Laboratory Results Last 24 Hours Test 09/03/16 16:00 09/03/16 17:05 09/04/16 07:55 White Blood Count 15.80 K/uL 15.31 K/uL Red Blood Count 4.60 M/uL 3.73 M/uL Hemoglobin 14.9 g/dL 12.1 g/dL Hematocrit 43.8 % 36.0 % Mean Corpuscular Volume 95.2 fL 96.5 fL Mean Corpuscular Hemoglobin 32.4 pg 32.4 pg Mean Corpuscular Hemoglobin Concent 34.0 g/dl 33.6 g/dl Platelet Count 317 K/uL 250 K/uL Mean Platelet Volume 8.7 fL 8.7 fL Neutrophils (%) (Auto) 86.0 % 91.7 % Lymphocytes (%) (Auto) 10.3 % 4.4 % Monocytes (%) (Auto) 3.3 % 3.5 % Eosinophils (%) (Auto) 0.0 % 0.0 % Basophils (%) (Auto) 0.1 % 0.1 % Neutrophils # (Auto) 13.60 K/uL 14.04 K/uL Lymphocytes # (Auto) 1.62 K/uL 0.68 K/uL Monocytes # (Auto) 0.52 K/uL 0.54 K/uL Eosinophils # (Auto) 0.00 K/uL 0.00 K/uL Basophils # (Auto) 0.02 K/uL 0.01 K/uL RDW Standard Deviation 48.5 fL 49.1 fL RDW Coefficient of Variation 13.8 % 13.9 % Immature Granulocyte % (Auto) 0.3 % 0.3 % Immature Granulocyte # (Auto) 0.04 K/uL 0.04 K/uL Sodium Level 142 mmol/L 140 mmol/L Potassium Level 3.7 mmol/L 4.1 mmol/L Chloride Level 108 mmol/L 107 mmol/L Carbon Dioxide Level 24 mmol/L 25 mmol/L Anion Gap 10.0 mmol/L 8.0 mmol/L Blood Urea Nitrogen 14 mg/dl 9 mg/dl Creatinine 0.78 mg/dl 0.67 mg/dl Est Creatinine Clear Calc Drug Dose 106.9 ml/min 124.4 ml/min Estimated GFR () 118.2 136.7 Estimated GFR (Non- 102.0 118.0 BUN/Creatinine Ratio 18.4 12.8 Random Glucose 87 mg/dl 116 mg/dl Calcium Level 8.8 mg/dl 8.0 mg/dl Total Bilirubin 0.8 mg/dl Direct Bilirubin 0.2 mg/dl Aspartate Amino Transf (AST/SGOT) 18 U/L Alanine Aminotransferase (ALT/SGPT) 17 U/L Alkaline Phosphatase 41 U/L Total Protein 7.4 gm/dl Albumin 3.9 gm/dl Lipase 121 U/L Human Chorionic Gonadotropin, Qual NEG Human Chorionic Gonadotropin, Quant < 1 mIU/mL Assessment and Plan 30yo s/p drainage of endometriomas and abdominal free fluid, bilateral salpingectomy, and significant lysis of adhesions due to severe endometriosis. She is already voiding successfully after removal of moreland, and tolerating clear diet. She may advance to regular at the next meal if she feels ready. I will add reglan to her medication list to aid in bowel motility as there was significant manipulation yesterday and I am alert for possible ileus in the first few postop days. We will transition her off of BRIDGE IRONWORKER and onto bolus IV dilaudid and IV toradol, and eventually to oral pain control with percocet when tolerated. She is noted to use 1-2 percocet per day at home chronically due to a work-related spinal disc injury, and may have higher pain management needs due to some tolerance. Pending her clinical course today we will consider whether discharge tonight vs tomorrow AM is the best course for her. I have also discussed the surgical findings, and my recommendations, with the patient and her sister at length this morning. She is agreeable to use of Lupron, beginning immediately, for a six-month course to allow for management of the surgically inaccessible remaining endometriosis.
[2016-09-04] MEDS ORDERED: METOCLOPRAMIDE HCL INJ 5 MG/ML 2 ML VIAL IV PRN (10:45)
--- NOTE | 2016-09-04 10:49 | Discharge Instructions ---
Discharge Instructions Admission Reason for Admission: Endometriosis Discharge Discharge Diagnosis / Problem: Severe endometriosis, bilateral endometriomas Discharge Goals Goal(s): Specific Goal(s) Activity Recommendations Activity Limitations: per Instructions/Follow-up section . Instructions / Follow-Up Instructions / Follow-Up ACTIVITY RECOMMENDATIONS: * Gradual return to full activity over the next 2-3 weeks. * No lifting - nothing heavier than 10lb over the next 2-3 weeks. * Do not engage in vigorous exercise, sexual activity or sports until cleared by your physician. * Do not drive or operate any motorized equipment until cleared by your physician. * You may shower/bathe daily. MEDICATIONS: For discomfort or pain, you may use Acetaminophen (Tylenol), Ibuprofen (Advil), or Naproxen (Aleve) following the package directions. For constipation you may use Colace following the package directions. Percocet has also been provided, to use as needed when the above medications are insufficient. Please try to use as little narcotic as possible, since this will increase the risk of constipation and/or ileus, an uncomfortable buildup of gas that sits in your bowel without passing. SPECIAL CARE INSTRUCTIONS: When you are discharged from the hospital, it is important for you to follow the instructions listed below: * During the first week at home, usual light household activities are encouraged. * Limit your activities to the way you feel. Do not try to clean the house or move furniture. Be sensible. * If you actively engage in sports and have done so up until the time of your delivery, you may resume these activities as soon as you feel able. This may take up to one month or even longer. Use good judgment. * You should eat a healthy and varied diet. If you develop worsening abdominal pain, are unable to pass gas, or do not have a BM for several days, please notify your physician. * Constipation is sometimes a problem after surgery. Take a mild laxative as needed. * A daily shower or tub bath is suggested. Wash incision daily with warm soapy water and pat dry. It doesn't need to be covered unless drainage is present. Call you doctor if: * A fever >101 degrees F (38.3 degrees C) on two occasions four hours apart and /or chills. * Worsening pain in the pelvic or vaginal areas. * Call the doctor for any increased redness, drainage or swelling around the incision and any pain unrelieved by prescribed pain medication. If you have any questions or concerns, call your health care practitioner at . FOLLOW UP VISIT: * Please call the office at to schedule a 4-6 week post op examination. It is important you keep this appointment. Current Hospital Diet Patient's current hospital diet: Clear Liquid Diet Discharge Diet Recommended Diet: Regular Diet Procedures Procedures Performed: Exploratory Laparotomy, Bilateral Salpingectomy, Drainage of Endometriomas, Lysis of Adhesions, Evacuation of Peritoneal Fluid. Pending Studies Studies pending at discharge: no Medical Emergencies . Who to Call and When: Medical Emergencies: If at any time you feel your situation is an emergency, please call 911 immediately. . Non-Emergent Contact Non-Emergency issues call your: Primary Care Provider . . "Provider Documentation" section prepared by Olesya Cote. VTE Core Measure Inpt VTE Proph given/why not?: Treatment not indicated [place] Drug Monitoring Program Search Results: patient reviewed within database Drug Monitoring Findings: Patient is a known chronic user of low doses of narcotic medication for a documented back injury. She will be expected to require increased pain medication to deal with the pain from a major abdominal surgery, and as such Rx was given.
[2016-09-04] MEDS ORDERED: OXYC-57 PO (10:52)
[2016-09-04] MEDS: OXYCODONE/ACETAMINOPHEN 5-325 TAB PO PRN ×2 (12:29→17:36)
[2016-09-04] MEDS: IBUPROFEN 600 MG TAB PO PRN (20:12)
[2016-09-05 00:05] VITALS: BP 96/56; PULSE 96; TEMP 37.1; O2SAT 97
[2016-09-05] MEDS: OXYCODONE/ACETAMINOPHEN 5-325 TAB PO PRN ×5 (00:35→19:22)
[2016-09-05] MEDS ORDERED: ONDA4TAB10 PO (08:35)
[2016-09-05 08:40] VITALS: BP 104/68; PULSE 99; TEMP 36.9; O2SAT 98
[2016-09-05] MEDS ORDERED: OXYC-88 PO (08:40)
--- NOTE | 2016-09-05 08:42 | OB/GYN Progress Note ---
WASTEWATER SUPERVISOR Progress Note Date of Service Sep 05, 2016. Subjective conversation w/ patient, physical exam, chart review, lab review Ambulation: ambulating normally Voiding: no voiding problems, no incontinence Diet Tolerance: Regular Diet Objective Vital Signs Date Time Temp Pulse Resp B/P Pulse Ox O2 Delivery O2 Flow Rate FiO2 09/05/16 00:05 37.1 96 16 96/56 97 Room Air 09/05/16 00:05 97 Room Air 09/04/16 19:30 37.0 88 16 109/53 100 Room Air 09/04/16 17:15 95 17 107/64 100 Room Air 09/04/16 15:30 Room Air 09/04/16 11:40 37.2 98 16 111/65 97 Room Air Physical Exam General Appearance: WELL-APPEARING Abdomen: normal bowel sounds, non tender, soft Incision Description: Clean, Dry & Intact Extremities: no calf tenderness Laboratory Results Last 24 Hours Test 09/05/16 04:44 Assessment and Plan Day Number: 2 Continue Routine Care: Meets criteria. Pain meds. Lupron Home
[2016-09-05] MEDS ORDERED: LEUPROLIDE ACETATE IM ONE (08:45)
[2016-09-05] MEDS ORDERED: NURSING VERBAL MED ORDER ONE ×2 (09:15→13:45)
[2016-09-05] MEDS ORDERED: ONDANSETRON 8MG OD TAB PO ONE (09:30)
[2016-09-05] MEDS: IBUPROFEN 600 MG TAB PO PRN ×2 (11:51→17:52)
[2016-09-05] MEDS: ONDANSETRON 4MG OD TAB PO PRN (14:19)
[2016-09-05 16:20] VITALS: BP 104/64; PULSE 80; TEMP 37.3; O2SAT 100
--- NOTE | 2016-09-05 17:50 | Progress Note ---
Subjective Date of Service: Sep 05, 2016. Subjective Pt evaluation today including: conversation w/ patient, conversation w/ family , physical exam, chart review, lab review, conversation w/ hospice care consultant Pain: well controlled at this time PO Intake: Eating bread with butter during my visit Voiding: no voiding problems I have been in contact with Treva's nurses throughout the day today. Before leaving this morning, Treva began complaining of nausea and dizziness. She refused labs this AM and had already requested her IV to be taken out and was not interested in replacement. She was therefore given Zofran ODT. This medicine was required several more times throughout the day today (oral zofran) for recurring nausea. She has been able to take some PO but her appetite is decreased. She is passing gas but has not had a BM since surgery, which is unusual as she typically goes 4-5x small BM's daily. She is able to void normally and has begun ambulating. She is talking and smiling with her sister as I visit this evening, though has abdominal pain with laughing which quickly stops her. Problem List Medical Problems: (1) Lower abdominal pain Status: Acute Review of Systems Constitutional: No chills, No fever Cardiac: No chest pain Abdomen: + nausea, No vomiting (denies emesis today but has self-limited her PO intake) Objective Vital Signs Date Time Temp Pulse Resp B/P Pulse Ox O2 Delivery O2 Flow Rate FiO2 09/05/16 16:20 37.3 80 18 104/64 100 Room Air 09/05/16 16:20 100 Room Air 09/05/16 08:40 Room Air 09/05/16 08:40 36.9 99 16 104/68 98 Room Air 09/05/16 00:05 37.1 96 16 96/56 97 Room Air 09/05/16 00:05 97 Room Air 09/04/16 19:30 37.0 88 16 109/53 100 Room Air Physical Exam General Appearance: no apparent distress (except with laughter which causes belly pain) Respiratory/Chest: no respiratory distress, no accessory muscle use Cardiovascular: no edema Abdomen: non tender, soft, + pertinent finding (incision c/d/i) Extremities: no pedal edema Neurologic/Psychiatric: normal mood/affect, oriented x 3 Laboratory Results Last 24 Hours Test 09/05/16 04:44 Assessment and Plan 30yo s/p drainage of endometriomas and abdominal free fluid, bilateral salpingectomy, and significant lysis of adhesions due to severe endometriosis. She was planned for discharge this morning, but developed nausea, decreased appetite, and has not yet had a BM. Given the extensive manipulation of her bowels intraoperatively, I have been alert for the possibility of ileus. I would like to have had labwork today and to have provided her with IV fluids while she had limited PO intake, but the patient declined both. She has maintained limited solid and liquid PO intake and although nauseated, has not vomited. She is passing at least some flatus. If she continues to feel at least this well by tomorrow morning, we should be able to discharge her at that time. Continued [facility] stay due to: other (concern for ileus - nausea, decreased appetite, no BM postoperatively)
[2016-09-05 19:15] VITALS: BP 99/60; PULSE 80; TEMP 36.3; O2SAT 100
[2016-09-05 23:25] VITALS: BP 106/64; PULSE 76; TEMP 36.5; O2SAT 98
[2016-09-06] MEDS: ONDANSETRON 4MG OD TAB PO PRN ×2 (02:16→08:10)
[2016-09-06] MEDS: IBUPROFEN 600 MG TAB PO PRN ×2 (03:42→08:11)
[2016-09-06 07:40] VITALS: BP 122/73; PULSE 85; TEMP 37.3; O2SAT 98
[2016-09-06] MEDS: OXYCODONE/ACETAMINOPHEN 5-325 TAB PO PRN (08:11)
--- NOTE | 2016-09-06 08:19 | OB/GYN Progress Note ---
[facility] Progress Note Date of Service Sep 06, 2016. Subjective conversation w/ patient, physical exam, chart review Ambulation: ambulating normally Voiding: no voiding problems Passing Gas: Yes Diet Tolerance: Regular Diet (poor appetite) Notes: Patient notes she continues to have nausea but relates it to when she has pain. She notes this is responsive to pain meds and oral antiemetics. She is passing gas but no bm. She smiles and laughs and interacts with me appropriately. She is scheduled to receive her lupron shot this am. She notes her appetite is decreased and she can only eat small bits at a time or she will have nausea. However, she is tolerating lots of oral fluids. Objective Vital Signs Date Time Temp Pulse Resp B/P Pulse Ox O2 Delivery O2 Flow Rate FiO2 09/05/16 23:25 98 Room Air 09/05/16 23:25 36.5 76 18 106/64 98 Room Air 09/05/16 19:15 36.3 80 16 99/60 100 Room Air 09/05/16 16:20 37.3 80 18 104/64 100 Room Air 09/05/16 16:20 100 Room Air 09/05/16 08:40 Room Air 09/05/16 08:40 36.9 99 16 104/68 98 Room Air Physical Exam General Appearance: WELL-APPEARING, WD/WN, NO APPARENT DISTRESS Respiratory/Chest: lungs clear, normal breath sounds Cardiovascular: regular rate, rhythm Abdomen: normal bowel sounds, soft, + tenderness (tenderness to general palpation consistent with postop, ) Incision Description: Clean, Dry & Intact Extremities: non-tender, normal inspection, no pedal edema belly not distended, scaphoid and soft. Assessment and Plan Day Number: 3 Continue Routine Care: Will plan for d/c today after receiving her Lupron. Her nausea has not progressed so I suspect she is not developed an ileus, but we did discuss the s/ s of this and when to call back. Dr. Cote left scripts yesterday. d/c INstructions were reviewed.
[2016-09-06 08:20] VITALS: BP 122/73; PULSE 85; TEMP 37.3; O2SAT 98
[2016-09-06] MEDS ORDERED: LEUPROLIDE ACETATE IM ONE (08:30)
[2016-09-06] MEDS ORDERED: ONDANSETRON INJ 2 MG/ML 2 ML VIAL IV ONE (08:59)
[2016-09-06] MEDS ORDERED: HYDROmorphone INJ 2 MG/ML SYR/VIAL IV ONE (08:59)
--- NOTE | 2016-09-17 17:10 | DISCHARGE SUMMARY ---
REASON FOR ADMISSION: Treva was seen in the Emergency Department due to worsening lower abdominal pain with leukocytosis and evidence of intraabdominal free fluid on ultrasound done at [facility] the day before. She was brought to the operating room for exploratory laparotomy on September 03 and found to have the expected large bilateral ovarian cystic masses. In addition, severe endometriosis with copious chocolate type fluid, free within her abdomen, bilateral hydrosalpinges and extraordinary intra-abdominal adhesive disease were also found. Lysis of adhesions was performed, abdominal washout was performed and drainage of ovarian cyst was also performed. With consultation from a general surgeon, it was felt that removal of either of her ovaries or uterus would be impossible without creating significant bowel injury due to the severity of her adhesions, so at this time the only tissue removed was the fallopian tubes. The patient's postoperative course was relatively smooth. Her leukocytosis improved dramatically postoperatively. Her vital signs were noted to be within normal limits. Her pain control was acceptable using oral medications and the patient was discharged to home on 09/05/2016 after receiving her first injection of Lupron earlier that morning. The plan will be for 6 months of monthly Lupron dosing to continue as an outpatient. After this time depending on the patient's clinical response, further surgical treatment may or may not be required.
== END 2016-09-06 09:00 | disposition home or self-care (01) | DRG 742 ==
LOC: ENRESERVDT → ENRESERVTM → C.EDB 14:50 → C.MS4N 21:30
PROVIDERS: ADMIT Obstetrics & Gynecology; ATTEND Obstetrics & Gynecology
PROC: 0UN20ZZ Release Bilateral Ovaries, Open Approach (ICD-10-PCS; principal; 2016-09-03 18:00)
PROC: 0UN70ZZ Release Bilateral Fallopian Tubes, Open Approach (ICD-10-PCS; principal; 2016-09-03 18:00)
PROC: 0W9J0ZZ Drainage of Pelvic Cavity, Open Approach (ICD-10-PCS; principal; 2016-09-03 18:00)
PROC: 0DNN0ZZ Release Sigmoid Colon, Open Approach (ICD-10-PCS; principal; 2016-09-03 18:00)
PROC: 0UT70ZZ Resection of Bilateral Fallopian Tubes, Open Approach (ICD-10-PCS; principal; 2016-09-03 18:00)
DX: N80.1 Endometriosis of ovary (principal); R18.8 Other ascites; R11.0 Nausea; T40.2X5A Adverse effect of other opioids, initial encounter; N80.2 Endometriosis of fallopian tube; N80.3 Endometriosis of pelvic peritoneum; N80.0 Endometriosis of uterus; N80.5 Endometriosis of intestine; N80.8 Other endometriosis; N73.6 Female pelvic peritoneal adhesions (postinfective); N70.11 Chronic salpingitis; D25.9 Leiomyoma of uterus, unspecified; N97.9 Female infertility, unspecified; N94.6 Dysmenorrhea, unspecified; G89.29 Other chronic pain; M54.9 Dorsalgia, unspecified; T14.90 Injury, unspecified; X58.XXXS Exposure to other specified factors, sequela; Y99.0 Civilian activity done for income or pay; Z79.3 Long term (current) use of hormonal contraceptives; Z79.891 Long term (current) use of opiate analgesic; Z79.899 Other long term (current) drug therapy

== ENCOUNTER → 2016-09-20 | Outpatient (CLI) | payer BC ==
[~2016-09-20] MED LIST: GABA-113 PO; META1TAB22 PO; NAPR1TAB9 PO; ONDA4TAB10 PO; OXYC-57 PO; OXYC-88 PO
[2016-09-20 16:21] LABS: MANUAL MICROSCOPIC REQUIRED? NO; REVIEW REQ? NO; URINE APPEARANCE CLEAR (CLEAR); URINE BILIRUBIN NEG (NEG); URINE COLOR DK YELLOW; URINE EPITHELIAL CELL AUTO >30 /lpf (0-5); URINE NITRITE NEG (NEG); URINE PH 5.5 (4.5-7.5); URINE SPECIFIC GRAVITY 1.027 (1.000-1.030); UROBILINOGEN NEG (NEG)
== END | disposition home or self-care (01) ==
LOC: C.LABSPEC 16:51
PROVIDERS: ATTEND Obstetrics & Gynecology
DX: R30.9 Painful micturition, unspecified (principal)

== ENCOUNTER 2017-05-12 13:25 | Emergency (ER) | payer BC ==
[~2017-05-12] VITALS: Ht 177.8 cm; Wt 65.3 kg
[~2017-05-12 13:25] MED LIST changes: -ONDA4TAB10 PO; -OXYC-88 PO
[2017-05-12 13:35] VITALS: TEMP 37.3; Ht 177.8 cm; Wt 65.3 kg
[2017-05-12] MEDS ORDERED: SODIUM CHLORIDE 0.9% 1000ML 500 ML IV STA (13:51)
[2017-05-12] MEDS ORDERED: ONDANSETRON INJ 2 MG/ML 2 ML VIAL IV STA (13:51)
[2017-05-12] MEDS ORDERED: KETOROLAC TROMETHAMINE 30 MG/ML VIAL IV STA (13:51)
[2017-05-12] MEDS ORDERED: MoRPHine SULFATE 4 MG/ML 1 ML CARP\\VIAL IV PRN (14:00)
--- NOTE | 2017-05-12 14:00 | EMERGENCY ROOM VISIT NOTE ---
History Report prepared by Galo: Evelyn Stephenson Under the Supervision of: Dr. Jaleel Arcos M.D. First contact with patient: 13:47 Chief Complaint: ED VAG BLEEDING Stated Complaint: SEVERE ABDOMINAL PAIN FROM ENDOMETRIOSIS History of Present Illness The patient is a 31 year old female who presents to the Emergency Room with complaints of persistent lower abdominal pain that began several weeks ago and recently worsened. She currently rates her discomfort as a 7/10 in severity. The patient states that she has a history of endometriosis. She states that in August her forensic computer examiner removed multiple cysts, fluid and fallopian tubes. The patient states that she was referred to the emergency department by her forensic computer examiner. She states that her pain has continued to increase and notes that she had to leave work today due to her pain. The patient additionally reports back pain and a pressure in her coccyx. She states that she has a known cyst on her coccyx. The patient states that she moves her bowels multiple times per day. She denies any urinary symptoms or concerning vaginal discharge. The patient states that she is on control. She reports a decrease in appetite and weight loss. She states that she has been bleeding vaginally, noting that it is like her normal period blood. The patient states that her forensic computer examiner wants her to have a hysterectomy. She denies any history of pelvic infections and denies being sexually active. Source of History: patient Onset: several weeks ago Position: abdomen (lower) Symptom Intensity: 7/10 Timing: worsening, other (persistent) Associated Symptoms: + back pain, No urinary symptoms Note: Associated symptoms: pain at coccyx, vaginal bleeding, decrease in appetite, weigh tloss Review of Systems See HPI for pertinent positives & negatives. A total of 10 systems reviewed and were otherwise negative. Past Medical & Surgical Medical Problems: (1) Endometriosis (2) Ovarian cyst Family History Endometriosis Social History Smoking Status: Never Smoker Drug Use: none Marital Status: Occupation Status: employed Current/Historical Medications Scheduled Control Pills ( Control Pills), 1 TAB PO DAILY Trazodone Hcl (Trazodone), 12.5 MG PO HS Allergies Coded Allergies: No Known Allergies (Unverified , 09/05/16) Physical Exam Vital Signs Date Time Temp Pulse Resp B/P (MAP) Pulse Ox O2 Delivery O2 Flow Rate FiO2 05/12/17 13:35 37.3 79 6 114/75 99 Room Air Physical Exam GENERAL: Patient is in no acute distress. HEENT: No acute trauma, normocephalic atraumatic, mucous membranes moist, no nasal congestion, no scleral icterus. NECK: No stridor, no adenopathy, no meningismus, trachea is midline. LUNGS: Clear to auscultation bilaterally, no wheeze, no rhonchi, breath sounds equal. HEART: Without murmurs gallops or rubs, regular rate and rhythm. ABDOMEN: Soft, diffusely moderately tender, bowel sounds positive, no hernias, no peritonitis. PELVIC: Menstrual appearing blood noted, minimal bleeding, speculum exam could not be completed secondary to pain and the patient refused any further attempts. EXTREMITIES: No cyanosis or edema, full range of motion of all the joints without pain or difficulty, no signs for acute trauma. NEUROLOGIC: Oriented x 3, no acute motor or sensory deficits, no focal weakness. SKIN: No rash, no jaundice, no diaphoresis. Medical Decision & Procedures Laboratory Results 05/12/17 14:00 Red Blood Count 4.47, Mean Corpuscular Volume 94.0, Mean Corpuscular Hemoglobin 32.7, Mean Corpuscular Hemoglobin Concent 34.8, Mean Platelet Volume 8.7, Neutrophils (%) (Auto) 58.0, Lymphocytes (%) (Auto) 36.0, Monocytes (%) (Auto) 4.8, Eosinophils (%) (Auto) 0.5, Basophils (%) (Auto) 0.5, Neutrophils # (Auto) 3.60, Lymphocytes # (Auto) 2.23, Monocytes # (Auto) 0.30, Eosinophils # (Auto) 0.03, Basophils # (Auto) 0.03 05/12/17 14:00 Test 05/12/17 14:00 05/12/17 14:22 White Blood Count 6.20 K/uL (4.8-10.8) Red Blood Count 4.47 M/uL (4.2-5.4) Hemoglobin 14.6 g/dL (12.0-16.0) Hematocrit 42.0 % (37-47) Mean Corpuscular Volume 94.0 fL (80-100) Mean Corpuscular Hemoglobin 32.7 pg (25-34) Mean Corpuscular Hemoglobin Concent 34.8 g/dl (32-36) Platelet Count 262 K/uL (130-400) Mean Platelet Volume 8.7 fL (7.4-10.4) Neutrophils (%) (Auto) 58.0 % Lymphocytes (%) (Auto) 36.0 % Monocytes (%) (Auto) 4.8 % Eosinophils (%) (Auto) 0.5 % Basophils (%) (Auto) 0.5 % Neutrophils # (Auto) 3.60 K/uL (1.4-6.5) Lymphocytes # (Auto) 2.23 K/uL (1.2-3.4) Monocytes # (Auto) 0.30 K/uL (0.11-0.59) Eosinophils # (Auto) 0.03 K/uL (0-0.5) Basophils # (Auto) 0.03 K/uL (0-0.2) RDW Standard Deviation 41.8 fL (36.4-46.3) RDW Coefficient of Variation 12.2 % (11.5-14.5) Immature Granulocyte % (Auto) 0.2 % Immature Granulocyte # (Auto) 0.01 K/uL (0.00-0.02) Anion Gap 7.0 mmol/L (3-11) Est Creatinine Clear Calc Drug Dose 113.6 ml/min Estimated GFR () 125.1 Estimated GFR (Non- 108.0 BUN/Creatinine Ratio 14.8 (10-20) Calcium Level 9.3 mg/dl (8.5-10.1) Total Bilirubin 0.7 mg/dl (0.2-1) Aspartate Amino Transf (AST/SGOT) 12 U/L (15-37) Alanine Aminotransferase (ALT/SGPT) 20 U/L (12-78) Alkaline Phosphatase 51 U/L (45-117) Total Protein 7.8 gm/dl (6.4-8.2) Albumin 4.5 gm/dl (3.4-5.0) Globulin 3.3 gm/dl (2.5-4.0) Albumin/Globulin Ratio 1.4 (0.9-2) Lipase 264 U/L (73-393) Human Chorionic Gonadotropin, Qual NEG (NEG) Urine Color YELLOW Urine Appearance CLEAR (CLEAR) Urine pH 7.5 (4.5-7.5) Urine Specific [place] 1.019 (1.000-1.030) Urine Protein NEG (NEG) Urine Glucose (UA) NEG (NEG) Urine Ketones NEG (NEG) Urine Occult Blood 3+ (NEG) Urine Nitrite NEG (NEG) Urine Bilirubin NEG (NEG) Urine Urobilinogen NEG (NEG) Urine Leukocyte Esterase NEG (NEG) Urine WBC (Auto) 1-5 /hpf (0-5) Urine RBC (Auto) >30 /hpf (0-4) Urine Hyaline Casts (Auto) 0 /lpf (0-5) Urine Epithelial Cells (Auto) 5-10 /lpf (0-5) Urine Bacteria (Auto) NEG (NEG) Laboratory results reviewed by me. Medications Administered Medications (Trade) Dose Ordered Sig/Paul Route Start Time Stop Time Status Last Admin Dose Admin Sodium Chloride 500 ml @ 999 mls/hr Q31M STAT IV 05/12/17 13:51 05/12/17 14:21 DC 05/12/17 14:22 999 MLS/HR Ondansetron HCl (Zofran Inj) 4 mg NOW STAT IV 05/12/17 13:51 05/12/17 13:55 DC 05/12/17 14:22 4 MG Morphine Sulfate (MoRPHine SULFATE INJ) 4 mg Q30M PRN IV 05/12/17 14:00 05/26/17 13:59 05/12/17 14:23 4 MG Ketorolac Tromethamine (Toradol Inj) 30 mg NOW STAT IV 05/12/17 13:51 05/12/17 13:55 DC 05/12/17 14:22 30 MG ED Course 1348: The patient was evaluated in room B6. A complete history and physical exam was performed. 1351: Ordered Toradol Inj 30 mg IV, Zofran Inj 4 mg IV, Sodium Chloride 500 ml @ 999 mls/hr IV. 1400: Ordered Morphine sulfate 4 mg IV. 1500: The patient was signed out to Felisha at change of shift. 1434: I performed the pelvic exam at this time. Medical Decision The patient is a 31 year old female who presents to the ED with complaints of abdominal pain. Differential diagnoses considered include Endometriosis, PID, UTI, electrolyte imbalance, abscess, ovarian cyst, . There is no leukocytosis or concerning anemia. No significant electrolyte abnormality, kidney failure or hepatitis. There is no pancreatitis. testing is negative. Urinalysis shows some blood consistent I think with her menstrual cycle. No signs of urinary infection. Pelvic ultrasound and abdominal and pelvis CT are pending. On exam, there was no peritonitis. The patient was not toxic or febrile. I did attempt to perform a vaginal exam but was unsuccessful-the patient could not tolerate the speculum exam because of pain. No vaginal cultures could be performed. The patient received IV Toradol, IV saline, IV Zofran and IV morphine. She is waiting to have her pelvic ultrasound and abdominal and pelvis CT. Dr. Diaz Baeza has assumed care at the change of shift. Please see his notes for the final disposition and plan. Medication Reconcilliation Current Medication List: was personally reviewed by me Impression Primary Impression: Diffuse abdominal pain Additional Impressions: Vaginal bleeding History of endometriosis Scribe Attestation The scribe's documentation has been prepared under my direction and personally reviewed by me in its entirety. I confirm that the note above accurately reflects all work, treatment, procedures, and medical decision making performed by me. Departure Information Dispostion Still a Patient Referrals No Doctor, Assigned (PCP) Problem Qualifiers
[2017-05-12] MEDS ORDERED: BCPILLS PO (14:10)
[2017-05-12] MEDS ORDERED: TRAZ50TA35 PO (14:10)
[2017-05-12 14:25] LABS: BASO % 0.5 %; BASO ABS # 0.03 K/uL (0-0.2); COMPLETE YES; EOS % 0.5 %; IG% 0.2 %; LYMPH ABS # 2.23 K/uL (1.2-3.4); MEAN CORPUSCULAR HEMOGLOBIN 32.7 pg (25-34); MEAN CORPUSCULAR HGB CONC 34.8 g/dl (32-36); MEAN PLATELET VOLUME 8.7 fL (7.4-10.4); MONO % 4.8 %; PLATELET COUNT 262 K/uL (130-400); RED BLOOD COUNT 4.47 M/uL (4.2-5.4)
[2017-05-12 14:42] LABS: BUN/CREATININE RATIO 14.8 (10-20); CALCIUM 9.3 mg/dl (8.5-10.1); CREATININE 0.74 mg/dl (0.60-1.20); POTASSIUM 4.1 mmol/L (3.5-5.1)
[2017-05-12 14:43] LABS: PREG INTERNAL NEGATIVE QC NEG CLEAR BACKGROUND; PREG INTERNAL POSITIVE QC POS CONTROL LINE
[2017-05-12 14:44] LABS: ALB/GLOB RATIO 1.4 (0.9-2)
[2017-05-12 14:47] LABS: MANUAL MICROSCOPIC REQUIRED? NO; REVIEW REQ? NO; URINE APPEARANCE CLEAR (CLEAR); URINE BILIRUBIN NEG (NEG); URINE COLOR YELLOW; URINE NITRITE NEG (NEG); URINE PH 7.5 (4.5-7.5); URINE SPECIFIC GRAVITY 1.019 (1.000-1.030); UROBILINOGEN NEG (NEG); ZZUR CULT IF INDIC CLEAN CATCH NO
--- NOTE | 2017-05-12 15:51 | DIAGNOSTIC IMAGING REPORT ---
ULTRASOUND OF THE PELVIS CLINICAL HISTORY: Pelvic pain. COMPARISON STUDY: No priors. TECHNIQUE: Real-time, grayscale, and color flow sonography of the pelvis is performed transabdominally. Images are reviewed in the transverse and longitudinal planes. The patient declined the endovaginal examination. FINDINGS: Uterus: The uterus is normal in size and echotexture, measuring 6.8 x 3.7 x 4.8 cm. Endometrium: The endometrium is normal in appearance, and the endometrial stripe is normal in thickness measuring up to 0.5 cm. Ovaries: The right ovary is normal in size measuring 4.4 x 2.5 x 2.9 cm and the left ovary is mildly enlarged measuring 6.1 x 5.9 x 4.9 cm. A minimally complex cyst in the left ovary measures 5.5 cm. There are additional bilateral ovarian follicles. Normal Doppler waveforms are shown within both ovaries. Pelvis: There is trace free fluid in the cul-de-sac. No concerning adnexal lesion is seen. IMPRESSION: 1. There is a 5.5 cm minimally complex left ovarian cyst. There is no sonographic evidence of ovarian torsion at the time of examination. 2. Unremarkable sonographic assessment of the uterus and right ovary. 3. There is trace and likely physiologic free fluid in the cul-de-sac. 4. The patient declined the endovaginal examination. Electronically signed by: Jaleel Crocker M.D. 05/12/2017 3:50 PM Dictated Date/Time: 05/12/2017 3:47 PM
[2017-05-12] MEDS ORDERED: OPTIRAY 320 IV PRN (17:15)
--- NOTE | 2017-05-12 17:21 | DIAGNOSTIC IMAGING REPORT ---
ABD/PELVIS IV AND ORAL CONT HISTORY: 31 years-old Female ABDOMINAL PAIN/GI--?DIVERTICULITIS--GIVE PO AND IV CONTRAST acute generalized abdominal pain COMPARISON: Pelvic ultrasound 05/12/2017 TECHNIQUE: Multiple axial CT images of the abdomen and pelvis were obtained following the intravenous administration of 116 mL Optiray 320. Oral contrast also administered. A dose lowering technique was used consistent with the principals of OSEI. FINDINGS: Partially imaged 3 mm nodule of the lateral basal segment right lower lobe is likely benign. There is minimal dependent bibasilar atelectasis. No pneumoperitoneum. Imaged inferior cardiac chambers are unremarkable. There is mild periportal edema, likely related to hydration status. There is a nonspecific 7 x 7 mm low attenuating lesion of the subcapsular posterior right hepatic lobe seen on image 47 of series 3. The spleen, pancreas and adrenal glands are within normal limits. Gallbladder is mildly contracted. The kidneys, ureters and urinary bladder are unremarkable. Uterus and right adnexa are within normal limits. Cystic lesion of the left adnexum is seen, 6.0 x 3.9 x 5.9 cm in AP, transverse and craniocaudal dimension. Mild amount of free pelvic fluid is likely physiologic. The abdominal aorta is normal in both course and caliber. No bulky retroperitoneal adenopathy. There is no bowel obstruction. No focal bowel wall thickening. The appendix appears normal. Soft tissues are unremarkable. Sclerotic foci of the bilateral iliac bones measuring up to 8 mm suggests bone islands. IMPRESSION: 1. No acute intra-abdominal or intrapelvic abnormality identified. Normal appendix. 2. Nonspecific 7 x 7 mm low attenuating lesion of the posterior right hepatic lobe. 3. Left ovarian cyst measuring up to 6.0 cm is again seen with mild likely reactive free pelvic fluid. This lesion was better assessed on comparison pelvic ultrasound of same day. The above report was generated using voice recognition software. It may contain grammatical, syntax or spelling errors. Electronically signed by: Walter Reinoso M.D. 05/12/2017 5:19 PM Dictated Date/Time: 05/12/2017 5:11 PM
[2017-05-12 19:05] VITALS: BP 109/60; PULSE 58; O2SAT 99
[2017-05-12] MEDS ORDERED: OXYC1TAB3 PO (19:19)
--- NOTE | 2017-05-12 19:24 | EMERGENCY ROOM VISIT NOTE ---
ED Visit Note First contact with patient: 15:46 The patient was taken in signout from Dr. Arcos at the change of shift. Please see that note for details. The patient was pending ultrasound and CAT scan report. The patient underwent CT and ultrasound imaging. She was found to have a 5.5 cm left ovarian cyst. Patient was informed of her findings. I did consult with Dr. Trent and discussed the findings. She recommended pain management and close follow-up with her primary WHITE SHOE RAGGER, Dr. Cote. The patient was prescribed Percocet in the past for her back as well as for her surgery that she had with Dr. Cote. She did well with this. I will providers for prescription of the same.. BMP was reviewed and did not reveal any abnormal findings except for the scripts she noted. Impression: 1. Pelvic pain 2. Left ovarian cyst DISPOSITION: Discharged. INSTRUCTIONS: Oxycodone (OxyIR) 5mg: Take 1-2 pills every four hours for breakthrough pain. Avoid alcohol, operating machinery or dangerous equipment, working on ladders or roofs, DRIVING, or situations where being under the influence may be dangerous. It is recommended to use an [id number] stool softener such as Colace, 100mg twice daily while taking this medication to avoid constipation. Ibuprofen(Motrin, Advil) may be used for fever or pain. Use 600mg every six hours as needed. Take with food. Avoid using more than 2400mg in a 24 hour period. Do not use 2400mg per day for more than three consecutive days without physician direction. Prolonged inappropriate use can lead to stomach upset or ulcers. (AND/OR) Acetaminophen(Tylenol) may be used for fever or pain. Use 1000mg every six hours as needed. Avoid using more than 4000mg in a 24 hour period. Rest and drink plenty of fluids as tolerated. Continue current medications. Return to the ER immediately for worsening or persistent abdominal pain, vomiting, fevers, chest pains, difficulty breathing, black or bloody stools, worsening of your condition, or as needed. Follow up with your WHITE SHOE RAGGER's office tomorrow by phone about your current condition.
== END 2017-05-12 19:30 | disposition home or self-care (01) ==
LOC: C.EDB 13:28
DX: R10.30 Lower abdominal pain, unspecified (principal); N93.9 Abnormal uterine and vaginal bleeding, unspecified; N80.9 Endometriosis, unspecified; N83.202 Unspecified ovarian cyst, left side; Z84.2 Family history of other diseases of the genitourinary system